=== PATIENT | female | born 1940 | race Caucasian/White ===

== ENCOUNTER → 2016-04-30 | Outpatient (CLI) | payer MEDICARE, OTHER ==
[~2016-04-30] MED LIST: ATAC32TA PO; CARV12.52 PO; DIGO0.12 PO; GLUC500C3 PO; HYDR12.56 PO; LEVO.05 PO
[2016-04-30 10:37] LABS: BICARBONATE 25.1 MEQ/L (21.0-32.0); POTASSIUM 3.9 MEQ/L (3.5-5.1)
== END ==
LOC: PLAB 06:51
PROVIDERS: ATTEND Internal Medicine Interventional Cardiology
DX: I50.22 Chronic systolic (congestive) heart failure (principal); I11.9 Hypertensive heart disease without heart failure; I42.0 Dilated cardiomyopathy
CPT/HCPCS: 36415; 80048

== ENCOUNTER → 2016-06-10 | Outpatient (CLI) | payer MEDICARE, OTHER ==
[2016-06-10 09:28] LABS: AUTOMATED NEUTROPHIL # 3.6 TH/MM3 (1.8-7.7); BASOPHIL # 0.1 TH/MM3 (0-0.2); BASOPHIL % 0.8 % (0.0-2.0); EOSINOPHIL # 0.2 TH/MM3 (0-0.4); EOSINOPHIL % 2.2 % (0.0-4.0); HEMATOCRIT 37.3 % (35.0-46.0); HEMO FLAGS DIFF FINAL; LYMPH % 29.7 % (9.0-44.0); LYMPHOCYTE # 2.2 TH/MM3 (1.0-4.8); MEAN CELL VOLUME 88.4 FL (80.0-100.0); MEAN CORPUSCULAR HEMOGLOBIN 29.6 PG (27.0-34.0); MEAN CORPUSCULAR HGB CONC 33.4 % (32.0-36.0); MONO % 18.6 % (0.0-8.0); NEUT % 48.7 % (16.0-70.0); PLATELET COUNT 285 TH/MM3 (150-450); RED BLOOD COUNT 4.22 MIL/MM3 (4.00-5.30); RED CELL DISTRIBUTION WIDTH 13.6 % (11.6-17.2); WHITE BLOOD COUNT 7.4 TH/MM3 (4.0-11.0)
[2016-06-10 10:03] LABS: DIGOXIN 0.8 NG/ML (0.8-2.0); HDL CHOLESTEROL 45.7 MG/DL (40.0-60.0)
== END ==
LOC: PLAB 06:59
PROVIDERS: ATTEND Family Medicine
DX: E03.8 Other specified hypothyroidism (principal); I43 Cardiomyopathy in diseases classified elsewhere; D64.9 Anemia, unspecified; E78.2 Mixed hyperlipidemia
CPT/HCPCS: 36415; 80061; 80162; 84443; 85025

== ENCOUNTER → 2016-10-28 | Outpatient (CLI) | payer MEDICARE, OTHER ==
[2016-10-28 08:55] LABS: POTASSIUM 4.2 MEQ/L (3.5-5.1)
[2016-10-28 08:58] LABS: BICARBONATE 27.9 MEQ/L (21.0-32.0)
== END ==
LOC: PLAB 07:08
PROVIDERS: ATTEND Internal Medicine Interventional Cardiology
DX: I11.0 Hypertensive heart disease with heart failure (principal); I34.0 Nonrheumatic mitral (valve) insufficiency; I50.22 Chronic systolic (congestive) heart failure
CPT/HCPCS: 36415; 80048

== ENCOUNTER → 2017-05-12 | Outpatient (CLI) | payer MEDICARE, OTHER ==
[2017-05-12 10:03] LABS: BICARBONATE 28.9 MEQ/L (21.0-32.0); CALCIUM 9.2 MG/DL (8.5-10.1); CREATININE 0.95 MG/DL (0.50-1.00)
== END ==
LOC: PLAB 06:41
PROVIDERS: ATTEND Internal Medicine Interventional Cardiology
DX: I50.22 Chronic systolic (congestive) heart failure (principal); Z79.899 Other long term (current) drug therapy
CPT/HCPCS: 36415; 80048

== ENCOUNTER 2017-06-18 02:16 | Observation (INO) | payer MEDICARE, OTHER ==
[2017-06-18] VITALS (8 sets, daily range): BP systolic 93–147; BP diastolic 50–86; PULSE 68–79; RESP 16–20; TEMP 96.3–98.5; O2SAT 90–99
[~2017-06-18] VITALS: Ht 165.1 cm; Wt 64.0 kg
--- NOTE | 2017-06-18 02:25 | PD ---
HPI Chief Complaint: gen weakness Time Seen by Provider: 02:18 Travel History International Travel<30 days: No Contact w/Intl Traveler<30days: No Traveled to known affect area: No History of Present Illness HPI Patient has had about 3-4 day history of generalized weakness, she is also noted that she has a dry cough, and just does not feel herself as per energy baker. She voiced this to her division service manager who in turn recommended her to go and have some blood work done including a TSH and digoxin. Patient denies having any fever, rash, nausea, vomiting, diarrhea, back pain, abdominal pain, or chest pain. PCP is Dr. German [facility] Dr. Rich Patient states she has allergies to iodine/contrast IV dye Past medical history significant for hypothyroidism, valvular disease, hypertension, congestive heart failure. Although the patient denied that she had any history of COPD or congestive heart failure when asked directly. PFSH Past Medical History Cardiovascular Problems: Yes (VALVULAR DX) Congestive Heart Failure: Yes Hypertension: Yes Thyroid Disease: Yes Menopausal: Yes Social History Alcohol Use: Yes (A LITTLE WINE ON OCC) Tobacco Use: No Substance Use: No Allergies-Medications (Allergen,Severity, Reaction): Coded Allergies: Iodinated Contrast- Oral and IV Dye (Unverified Allergy, Severe, THROAT SWELL, 11/18/16) Reported Meds & Prescriptions Reported Meds & Active Scripts Active Reported Glucosamine (Glucosamine Sulfate) 500 Mg Cap 1,500 Mg PO DAILY Hctz (Hydrochlorothiazide) 12.5 Mg Cap 12.5 Mg PO DAILY Synthroid (Levothyroxine Sodium) 50 Mcg Tab 50 Mcg PO DAILY Atacand (Candesartan Cilexetil) 32 Mg Tab 32 Mg PO DAILY Carvedilol 12.5 Mg Tab 12.5 Mg PO BID Digoxin 0.125 Mg Tab 0.125 Mg PO DAILY Review of Systems General / Constitutional: No: Fever Eyes: No: Visual changes HENT: No: Headaches Cardiovascular: No: Chest Pain or Discomfort Respiratory: Positive: Cough, Shortness of Breath Gastrointestinal: No: Abdominal Pain Genitourinary: No: Dysuria Musculoskeletal: No: Pain Skin: No Rash Neurologic: Positive: Weakness (Generalized) Psychiatric: No: Depression Endocrine: No: Polydipsia Hematologic/Lymphatic: No: Easy Bruising Physical Exam Narrative GENERAL: [-] SKIN: Focused skin assessment warm/dry. HEAD: Atraumatic. Normocephalic. EYES: Pupils equal and round. No scleral icterus. No injection or drainage. ENT: No nasal bleeding or discharge. Mucous membranes pink and moist. NECK: Trachea midline. No JVD. CARDIOVASCULAR: Regular rate and rhythm. No murmur appreciated. RESPIRATORY: No accessory muscle use. Right sided wheezing and localized rhonchi along the entire right lung base. Decreased tidal volume of right lung , left lung clear to auscultation with good tidal volume of left lung as well. GASTROINTESTINAL: Abdomen soft, non-tender, nondistended. MUSCULOSKELETAL: No obvious deformities. No clubbing. No cyanosis. No edema. NEUROLOGICAL: Awake and alert. No obvious cranial nerve deficits. Motor grossly within normal limits. Normal speech. PSYCHIATRIC: Appropriate mood and affect; insight and judgment normal. Data Data Last Documented VS Vital Signs Date Time Temp Pulse Resp B/P (MAP) Pulse Ox O2 Delivery O2 Flow Rate FiO2 06/18/17 04:00 78 16 147/86 (106) 97 Room Air 06/18/17 02:20 97.4 Orders Orders Electrocardiogram (06/18/17 02:18) Complete Blood Count With Diff (06/18/17 02:18) Comprehensive Metabolic Panel (06/18/17 02:18) Troponin I (06/18/17 02:18) B-Type Natriuretic Peptide (06/18/17 02:18) Prothrombin Time / Inr (Pt) (06/18/17 02:18) Act Partial Throm Time (Ptt) (06/18/17 02:18) Lipase (06/18/17 02:18) Urinalysis - C+S If Indicated (06/18/17 02:18) Digoxin (06/18/17 02:18) Thyroid Stimulating Hormone (06/18/17 02:18) Sputum Culture And Gram Stain (06/18/17 02:18) Influenzae A/B Antigen (06/18/17 02:18) Chest, Pa & Lat (06/18/17 02:18) Iv Access Insert/Monitor (06/18/17 02:18) Ecg Monitoring (06/18/17 02:18) Oximetry (06/18/17 02:18) Lactic Acid Sepsis Protocol (06/18/17 02:18) Blood Culture (06/18/17 02:18) Ceftriaxone Inj (Rocephin Inj) (06/18/17 02:30) Azithromycin Inj (Zithromax Inj) (06/18/17 02:30) Ondansetron Inj (Zofran Inj) (06/18/17 04:45) Furosemide Inj (Lasix Inj) (06/18/17 04:45) Admit Order (Ed Use Only) (06/18/17 04:46) Labs Laboratory Tests Test 06/18/17 02:30 White Blood Count 11.1 TH/MM3 Red Blood Count 4.14 MIL/MM3 Hemoglobin 12.6 GM/DL Hematocrit 36.5 % Mean Corpuscular Volume 88.4 FL Mean Corpuscular Hemoglobin 30.6 PG Mean Corpuscular Hemoglobin Concent 34.6 % Red Cell Distribution Width 14.0 % Platelet Count 242 TH/MM3 Mean Platelet Volume 10.1 FL Neutrophils (%) (Auto) 67.1 % Lymphocytes (%) (Auto) 17.0 % Monocytes (%) (Auto) 10.9 % Eosinophils (%) (Auto) 2.1 % Basophils (%) (Auto) 2.9 % Neutrophils # (Auto) 7.5 TH/MM3 Lymphocytes # (Auto) 1.9 TH/MM3 Monocytes # (Auto) 1.2 TH/MM3 Eosinophils # (Auto) 0.2 TH/MM3 Basophils # (Auto) 0.3 TH/MM3 CBC Comment AUTO DIFF Differential Total Cells Counted 100 Neutrophils % (Manual) 60 % Band Neutrophils % 1 % Lymphocytes % 30 % Monocytes % 4 % Eosinophils % 5 % Neutrophils # (Manual) 6.8 TH/MM3 Differential Comment FINAL DIFF MANUAL Platelet Estimate NORMAL Platelet Morphology Comment CLUMPED Prothrombin Time 11.4 SEC Prothromb Time International Ratio 1.1 RATIO Activated Partial Thromboplast Time 18.2 SEC Blood Urea Nitrogen 21 MG/DL Creatinine 0.91 MG/DL Random Glucose 151 MG/DL Total Protein 7.0 GM/DL Albumin 3.1 GM/DL Calcium Level 8.1 MG/DL Alkaline Phosphatase 71 U/L Aspartate Amino Transf (AST/SGOT) 48 U/L Alanine Aminotransferase (ALT/SGPT) 70 U/L Total Bilirubin 0.8 MG/DL Sodium Level 141 MEQ/L Potassium Level 4.4 MEQ/L Chloride Level 111 MEQ/L Carbon Dioxide Level 23.2 MEQ/L Anion Gap 7 MEQ/L Estimat Glomerular Filtration Rate 60 ML/MIN Lactic Acid Level 1.3 mmol/L Troponin I LESS THAN 0.02 NG/ML B-Type Natriuretic Peptide 1276 PG/ML Lipase 205 U/L Thyroid Stimulating Hormone 3rd Gen 1.350 uIU/ML Digoxin Level 0.5 NG/ML MDM Medical Decision Making Medical Screen Exam Complete: Yes Emergency Medical Condition: Yes Medical Record Reviewed: Yes Interpretation(s) EKG shows normal sinus rhythm at 67 bpm, with occasional PVCs, along with a left bundle branch block type pattern Differential Diagnosis Anemia versus hypothyroidism versus digoxin overdose versus pneumonia Narrative Course CBC does not show any major leukocytosis or left shift, no anemia, normal platelet count Coagulation profile is normal Digoxin is 0.5 which is actually low Chemistry profile shows a normal kidney functions, normal electrolytes, mildly elevated AST of 48 ALT of 70, the patient's beta natruretic peptide is 1276, troponin is less than 0.02, normal TSH and normal lipase Chest x-ray shows cardiomegaly along with pulmonary edema as read by me Diagnosis Primary Impression: Acute exacerbation of congestive heart failure Admitting Information Admitting Physician Requests: Observation Nicko Mac MD Jun 18, 2017 02:25
[2017-06-18] MEDS ORDERED: AZITHROMYCIN INJ 500 MG in SODIUM CHLOR 0.9% 250 ML INJ 250 ML IV ONE (02:30)
[2017-06-18] MEDS ORDERED: cefTRIAXone INJ 1,000 MG in SODIUM CHLORIDE 0.9% INJ 100 ML IV ONE (02:30)
[2017-06-18 02:47] LABS: CHLORIDE 111 MEQ/L (98-107); SODIUM (NA) 141 MEQ/L (136-145)
[2017-06-18 02:51] LABS: ALBUMIN 3.1 GM/DL (3.4-5.0); BICARBONATE 23.2 MEQ/L (21.0-32.0); CALCIUM 8.1 MG/DL (8.5-10.1)
[2017-06-18 02:52] LABS: BLOOD UREA NITROGEN 21 MG/DL (7-18); GLUCOSE,RANDOM 151 MG/DL (74-106)
[2017-06-18 02:54] LABS: ALT (GPT) 70 U/L (10-53); AST (GOT) 48 U/L (15-37)
[2017-06-18 02:55] LABS: CREATININE 0.91 MG/DL (0.50-1.00); GLOMERULAR FILTRATION RATE 60 ML/MIN (>89)
[2017-06-18 02:56] LABS: AUTOMATED NEUTROPHIL # 7.5 TH/MM3 (1.8-7.7); BASOPHIL # 0.3 TH/MM3 (0-0.2); BASOPHIL % 2.9 % (0.0-2.0); EOSINOPHIL # 0.2 TH/MM3 (0-0.4); EOSINOPHIL % 2.1 % (0.0-4.0); HEMATOCRIT 36.5 % (35.0-46.0); HEMOGLOBIN 12.6 GM/DL (11.6-15.3); LYMPHOCYTE # 1.9 TH/MM3 (1.0-4.8); MEAN CELL VOLUME 88.4 FL (80.0-100.0); MEAN CORPUSCULAR HEMOGLOBIN 30.6 PG (27.0-34.0); MEAN CORPUSCULAR HGB CONC 34.6 % (32.0-36.0); MEAN PLATELET VOLUME 10.1 FL (7.0-11.0); MONO % 10.9 % (0.0-8.0); MONOCYTE # 1.2 TH/MM3 (0-0.9); NEUT % 67.1 % (16.0-70.0); PLATELET COUNT 242 TH/MM3 (150-450); RED BLOOD COUNT 4.14 MIL/MM3 (4.00-5.30); TOTAL BILIRUBIN ADULT 0.8 MG/DL (0.2-1.0); WHITE BLOOD COUNT 11.1 TH/MM3 (4.0-11.0)
[2017-06-18 02:57] LABS: ALKALINE PHOSPHATASE 71 U/L (45-117)
[2017-06-18 03:00] LABS: TROPONIN I LESS THAN 0.02 NG/ML (0.02-0.05)
[2017-06-18 03:06] LABS: INTERNATIONAL NORMALIZED RATIO 1.1 RATIO; PROTHROMBIN TIME - PATIENT 11.4 SEC (9.8-11.6)
[2017-06-18 03:09] LABS: DIGOXIN 0.5 NG/ML (0.8-2.0)
--- NOTE | 2017-06-18 03:14 | RADRPT ---
EXAM DATE/TIME: 06/18/2017 02:43 [place] COMPARISON: No previous studies available for comparison. INDICATIONS : Cough, weakness for 1 week MEDICAL HISTORY : None. SURGICAL HISTORY : None. ENCOUNTER: Initial ACUITY: 1 week PAIN SCORE: 0/10 LOCATION: Bilateral chest FINDINGS: PA and obvious the chest show moderate cardiomegaly. No pulmonary vascular engorgement. Chronic inter stitial changes. The lungs are hyper aerated. No infiltrates or effusions. Bony structures are intact . PA and lateral views of the chest demonstrate the lungs to be symmetrically aerated without evidence of mass, infiltrate or effusion. The cardiomediastinal contours are unremarkable. Osseous structure s are intact. CONCLUSION: Cardiomegaly with chronic interstitial changes. Andrea Martinez Jr., MD on June 18, 2017 at 3:11 Board Certified Radiologist. This report was verified electronically.
[2017-06-18 03:19] LABS: BANDS 1 % (0-6); LYMPHOCYTES 30 % (9-44); MONOCYTES 4 % (0-8); NEUTROPHIL # MANUAL DIFF 6.8 TH/MM3 (1.8-7.7); POLYS (SEG NEUTROPHILS) 60 % (16-70)
[2017-06-18] MEDS ORDERED: ONDANSETRON HCL 4 MG/2 ML VIAL IVP ONE (04:45)
[2017-06-18] MEDS ORDERED: FUROSEMIDE 40 MG/4 ML VIAL IV PUSH ONE (04:45)
[2017-06-18] MEDS ORDERED: NALOXONE HCL 0.4 MG/ML AMP IV PUSH PRN (05:00)
[2017-06-18] MEDS ORDERED: SODIUM CHLORIDE 0.9% FLUSH 10 ML FLUSH IV FLUSH PRN (05:00)
[2017-06-18 06:47] LABS: BILIRUBIN, URINE NEG (NEG); BLOOD, URINE NEG (NEG); GLUCOSE,URINE NEG (NEG); KETONE, URINE NEG (NEG); NITRITE,URINE NEG (NEG); URINE COLOR YELLOW (YELLW/STRAW); URINE LEUKOCYTE ESTERASE NEG (NEG)
[2017-06-18 06:52] LABS: SQUAMOUS EPITHELIAL CELL URINE 0-5 /hpf (0-5)
[2017-06-18] MEDS: SODIUM CHLORIDE 0.9% FLUSH 10 ML FLUSH IV FLUSH SCH ×2 (10:37→20:26)
[2017-06-18] MEDS ORDERED: CARVEDILOL 12.5 MG TAB PO ONE (11:00)
[2017-06-18] MEDS ORDERED: LEVOTHYROXINE SODIUM 50 MCG TAB PO ONE (11:00)
[2017-06-18] MEDS ORDERED: FUROSEMIDE 20 MG/2 ML VIAL IV PUSH ONE (11:00)
[2017-06-18] MEDS ORDERED: DIGOXIN 0.125 MG TAB PO ONE (11:00)
[2017-06-18] MEDS ORDERED: HYDROCHLOROTHIAZIDE 12.5 MG CAP PO ONE (11:00)
--- NOTE | 2017-06-18 12:16 | HHI.HP ---
[facility]ician Yue German MD Admission Diagnosis CHF EXACERBATION Diagnoses: (1) Acute exacerbation of CHF (congestive heart failure) Diagnosis: Principal Travel History International Travel<30 Days: No Contact w/Intl Traveler <30 Da: No Traveled to Known Affected Are: No History of Present Illness Mrs. Little is a 76 year old female. She came in overnight due to shortness of breath and weakness. She is found to have an elevated BNP. She has a past history of congestive heart failure. At baseline she is on hydrochlorothiazide and is usually fluid balanced. With diuresis she has shown improvement already. Continue diuresis should balance her hemodynamically and she may be ready for discharge tomorrow. No complaints of chest pain. Shortness of breath has resolved. Review of Systems Constitutional: COMPLAINS OF: Fatigue, DENIES: Fever, Chills Eyes: DENIES: Diplopia, Eye inflammation, Eye pain Ears, nose, mouth, throat: DENIES: Hearing loss, Vertigo, Nasal discharge, Oral lesions Respiratory: COMPLAINS OF: Shortness of breath, DENIES: Cough, Wheezing Cardiovascular: DENIES: Chest pain, Palpitations, Syncope Gastrointestinal: DENIES: Abdominal pain, Black stools, Bloody stools, Constipation Musculoskeletal: DENIES: Joint pain, Muscle aches, Stiffness, Joint Swelling Integumentary: DENIES: Abnormal pigmentation, Pruritus, Rash, Nail changes, Breast masses, Breast skin changes, Nipple discharge Hematologic/lymphatic: DENIES: Bruising, Lymphadenopathy Immunologic/allergic: DENIES: Eczema, Urticaria Neurologic: DENIES: Abnormal gait, Headache, Paresthesias Psychiatric: DENIES: Anxiety, Confusion, Hallucinations Past Family Social History Past Medical History Congestive heart failure Hypothyroidism Hypertension Cardiac valve disease Past Surgical History None Reported Medications Reported Meds & Active Scripts Active Reported Glucosamine (Glucosamine Sulfate) 500 Mg Cap 1,500 Mg PO DAILY Hydrochlorothiazide (Miscellaneous Medication) 12.5 Mg Cap 12.5 Mg PO DAILY Synthroid (Levothyroxine Sodium) 50 Mcg Tab 50 Mcg PO DAILY Atacand (Candesartan Cilexetil) 32 Mg Tab 32 Mg PO DAILY Carvedilol 12.5 mg (Carvedilol) 12.5 Mg Tab 12.5 Mg PO BID Digoxin 0.125 mg (Digoxin) 0.125 Mg Tab 0.125 Mg PO DAILY Allergies: Coded Allergies: Iodinated Contrast- Oral and IV Dye (Unverified Allergy, Severe, THROAT SWELL, 11/18/16) Active Ordered Medications Administered Medications Medications (Trade) Dose Ordered Sig/Brittani Route PRN Reason Start Time Stop Time Status Last Admin Dose Admin Sodium Chloride (NS Flush) 2 ml BID IV FLUSH 06/18/17 09:00 06/18/17 10:37 Family History Myocardial infarction in mother and 2 sisters Social History Occasional wine No smoking No illicit drug abuse Physical Exam Vital Signs Vital Signs Date Time Temp Pulse Resp B/P (MAP) Pulse Ox O2 Delivery O2 Flow Rate FiO2 06/18/17 07:50 96.8 76 20 109/52 (71) 91 06/18/17 06:00 96.3 78 20 121/60 (80) 96 06/18/17 04:53 68 16 127/77 (94) 98 Room Air 06/18/17 04:00 78 16 147/86 (106) 97 Room Air 06/18/17 02:30 99 Room Air 06/18/17 02:20 97.4 77 18 140/82 (101) 99 Physical Exam GENERAL: NAD, A&Ox3 HEAD: Normocephalic. NECK: Supple, trachea midline. No lymphadenopathy. EYES: No scleral icterus. No injection or drainage. CARDIOVASCULAR: Regular rate and rhythm without murmurs, gallops, or rubs. RESPIRATORY: Breath sounds equal bilaterally. No accessory muscle use. GASTROINTESTINAL: Abdomen soft, non-tender, nondistended. MUSCULOSKELETAL: No cyanosis, or edema. SKIN: Warm and dry. NEURO: No focal neurological deficitis. Laboratory Laboratory Tests Test 06/18/17 02:30 06/18/17 06:40 06/18/17 09:05 White Blood Count 11.1 Red Blood Count 4.14 Hemoglobin 12.6 Hematocrit 36.5 Mean Corpuscular Volume 88.4 Mean Corpuscular Hemoglobin 30.6 Mean Corpuscular Hemoglobin Concent 34.6 Red Cell Distribution Width 14.0 Platelet Count 242 Mean Platelet Volume 10.1 Neutrophils (%) (Auto) 67.1 Lymphocytes (%) (Auto) 17.0 Monocytes (%) (Auto) 10.9 Eosinophils (%) (Auto) 2.1 Basophils (%) (Auto) 2.9 Neutrophils # (Auto) 7.5 Lymphocytes # (Auto) 1.9 Monocytes # (Auto) 1.2 Eosinophils # (Auto) 0.2 Basophils # (Auto) 0.3 CBC Comment AUTO DIFF Differential Total Cells Counted 100 Neutrophils % (Manual) 60 Band Neutrophils % 1 Lymphocytes % 30 Monocytes % 4 Eosinophils % 5 Neutrophils # (Manual) 6.8 Differential Comment FINAL DIFF MANUAL Platelet Estimate NORMAL Platelet Morphology Comment CLUMPED Prothrombin Time 11.4 Prothromb Time International Ratio 1.1 Activated Partial Thromboplast Time 18.2 Blood Urea Nitrogen 21 Creatinine 0.91 Random Glucose 151 Total Protein 7.0 Albumin 3.1 Calcium Level 8.1 Alkaline Phosphatase 71 Aspartate Amino Transf (AST/SGOT) 48 Alanine Aminotransferase (ALT/SGPT) 70 Total Bilirubin 0.8 Sodium Level 141 Potassium Level 4.4 Chloride Level 111 Carbon Dioxide Level 23.2 Anion Gap 7 Estimat Glomerular Filtration Rate 60 Lactic Acid Level 1.3 Troponin I LESS THAN 0.02 LESS THAN 0.02 B-Type Natriuretic Peptide 1276 Lipase 205 Thyroid Stimulating Hormone 3rd Gen 1.350 Digoxin Level 0.5 Urine Collection Type CLEAN CATCH Urine Color YELLOW Urine Turbidity CLEAR Urine pH 5.0 Urine Specific [place] 1.010 Urine Protein NEG Urine Glucose (UA) NEG Urine Ketones NEG Urine Occult Blood NEG Urine Nitrite NEG Urine Bilirubin NEG Urine Urobilinogen 0.2 Urine Leukocyte Esterase NEG Urine Squamous Epithelial Cells 0-5 Microscopic Urinalysis Comment CULT NOT INDICATED Date/Time Source Procedure Growth Status 06/18/17 02:35 Blood Peripheral Aerobic Blood Culture Pending Received 06/18/17 02:35 Blood Peripheral Anaerobic Blood Culture Pending Received 06/18/17 03:10 Nasal Washing Influenza Types A,B Antigen (KEVIN) - Final NEGATIVE FOR FLU A AND B ANTIGEN.... Complete Result Diagram: 06/18/1722906/18/17229 Imaging Last Impressions Chest X-Ray 06/18/17217 Signed Impressions: Service Date/Time: June 02:43 - CONCLUSION: Cardiomegaly with chronic interstitial changes. MD Amaury Menard Jr. VTE Risk Assessment Amaury VTE Risk Assessment: No/Low Risk (score <= 1) Caprini Risk Assessment Model Point Value = 1 Point Value = 2 Point Value = 3 Point Value = 5 Age 41-60 Minor surgery BMI > 25 kg/m2 Swollen legs Varicose veins or History of unexplained or recurrent spontaneous Oral contraceptives or hormone replacement Sepsis (< 1 month) Serious lung disease, including pneumonia (< 1 month) Abnormal pulmonary function Acute myocardial infarction Congestive heart failure (< 1 month) History of inflammatory bowel disease Medical patient at bed rest Age 61-74 Arthroscopic surgery Major open surgery (> 45 min) Laparoscopic surgery (> 45 min) Malignancy Confined to bed (> 72 hours) Immobilizing plaster cast Central venous access Age >= 75 History of VTE Family history of VTE Factor V Leiden Prothrombin [id number] Lupus anticoagulant Anticardiolipin antibodies Elevated serum homocysteine Heparin-induced thrombocytopenia Other congenital or acquired thrombophilia Stroke (< 1 month) Elective arthroplasty Hip, pelvis, or leg fracture Acute spinal cord injury (< 1 month) Prophylaxis Regimen Total Risk Factor Score Risk Level Prophylaxis Regimen 0-1 Low Early ambulation 2 Moderate Order ONE of the following: *Sequential Compression Device (SCD) *Heparin 5000 units SQ BID 3-4 Higher Order ONE of the following medications: *Heparin 5000 units SQ TID *Enoxaparin/Lovenox 40 mg SQ daily (WT < 150 kg, CrCl > 30 mL/min) *Enoxaparin/Lovenox 30 mg SQ daily (WT < 150 kg, CrCl > 10-29 mL/min) *Enoxaparin/Lovenox 30 mg SQ BID (WT < 150 kg, CrCl > 30 mL/min) AND/OR *Sequential Compression Device (SCD) 5 or more Highest Order ONE of the following medications: *Heparin 5000 units SQ TID (Preferred with Epidurals) *Enoxaparin/Lovenox 40 mg SQ daily (WT < 150 kg, CrCl > 30 mL/min) *Enoxaparin/Lovenox 30 mg SQ daily (WT < 150 kg, CrCl > 10-29 mL/min) *Enoxaparin/Lovenox 30 mg SQ BID (WT < 150 kg, CrCl > 30 mL/min) AND *Sequential Compression Device (SCD) Assessment and Plan Problem List: (1) Acute exacerbation of CHF (congestive heart failure) ICD Code: I50.9 - Heart failure, unspecified Assessment and Plan 76-year-old female admitted secondary to CHF exacerbation Acute on chronic CHF, exacerbation Congestive heart failure not otherwise specified Cardiac Valve Disease NOS No records of type of CHF Improvement with diuresis so far Continue diuresis and follow clinically Follow renal function Hypertension Continue baseline treatment Follow blood pressures Adjust treatments as needed Hypothyroidism Continue baseline treatments Follow as an outpatient DVT prophylaxis Everett Hewitt MD Jun 18, 2017 12:16
--- NOTE | 2017-06-18 13:54 | EKG ---
Date Performed: 06/18/2017 Time Performed: 02:39:08 PTAGE: 76 years EKG: Sinus rhythm WITH OCCASIONAL VENTRICULAR PREMATURE COMPLEXES MARKED LEFT AXIS DEVIATION LEFT BUNDLE BRANCH BLOCK ABNORMAL ECG NO PREVIOUS TRACING DOCTOR: Kary Delgado Interpretating Date/Time 06/18/2017 13:51:26
--- NOTE | 2017-06-18 14:05 | EKG ---
Date Performed: 06/18/2017 Time Performed: 09:09:08 PTAGE: 76 years EKG: Sinus rhythm WITH FREQUENT VENTRICULAR PREMATURE COMPLEXES MARKED LEFT AXIS DEVIATION LEFT BUNDLE BRANCH BLOCK AB NORMAL ECG Since the PREVIOUS TRACING , no significant change noted PREVIOUS TRACIN06/18/2017 02.39 DOCTOR: Kary Delgado Interpretating Date/Time 06/18/2017 13:56:51
[2017-06-18] MEDS: FUROSEMIDE 20 MG/2 ML VIAL IV PUSH SCH (15:54)
--- NOTE | 2017-06-18 17:15 | ECHRPT ---
Indication: HEART FAILURE CONCLUSIONS Moderately dilated left ventricle. Wall thickness is normal. The left ventricular systolic function is severely reduced with an estimated ejection fraction in th e range of 15- 20%. Moderate mitral valve regurgitation. Mitral annular calcification is present. Trivial pulmonary valve regurgitation. BP: / HR: Rhythm: MEASUREMENTS (Male / Female) Normal Values Technical Quality: 2D ECHO LV Diastolic Diameter PLAX 5.8 cm 4.2 - 5.9 / 3.9 - 5.3 cm LV Systolic Diameter PLAX 5.4 cm IVS Diastolic Thickness 1.2 cm 0.6 - 1.0 / 0.6 - 0.9 cm LVPW Diastolic Thickness 0.8 cm 0.6 - 1.0 / 0.6 - 0.9 cm LV Relative Wall Thickness 0.3 LA Systolic Diameter LX 4.0 cm 3.0 - 4.0 / 2.7 - 3.8 cm DOPPLER MR Peak Velocity 521.0 cm/s MR Peak Gradient 108.6 mmHg Mitral E Point Velocity 52.8 cm/s Mitral A Point Velocity 83.4 cm/s Mitral E to A Ratio 0.6 TR Peak Velocity 281.0 cm/s TR Peak Gradient 31.6 mmHg Right Atrial Pressure 5.0 mmHg Pulmonary Artery Systolic Pressu 36.6 mmHg Right Ventricular Systolic Press 36.6 mmHg FINDINGS LEFT VENTRICLE Moderately dilated left ventricle. Wall thickness is normal. The left ventricular systolic function is severely reduced with an estimated ejection fraction in th e range of 15- 20%. RIGHT VENTRICLE Normal right ventricular size and systolic function. LEFT ATRIUM The left atrial size is normal. RIGHT ATRIUM The right atrial size is normal. ATRIAL SEPTUM Normal atrial septal thickness without atrial level shunting by limited color doppler interrogation. AORTA The aortic root and proximal ascending aorta are normal in size on limited imaging. MITRAL VALVE Moderate mitral valve regurgitation. Mitral annular calcification is present. AORTIC VALVE Trileaflet aortic valve. No aortic valve stenosis or regurgitation. TRICUSPID VALVE Structurally normal tricuspid valve. No tricuspid valve stenosis or regurgitation. PULMONARY VALVE Trivial pulmonary valve regurgitation. VESSELS The inferior vena cava is normal in size. PERICARDIUM No pericardial effusion. Rashid Granda MD, FACC (Electronically Signed) Final Date:18 June 2017 17:14
[2017-06-18] MEDS: CARVEDILOL 12.5 MG TAB PO SCH (20:26)
[2017-06-19] VITALS: BP 133/63; PULSE 76; RESP 18; TEMP 97.6; O2SAT 91
[2017-06-19 04:00] VITALS: BP 133/84; PULSE 73; RESP 18; TEMP 97.8; O2SAT 91
[2017-06-19] MEDS ORDERED: LEVOTHYROXINE SODIUM 50 MCG TAB PO SCH (06:00)
[2017-06-19 06:09] LABS: AUTOMATED NEUTROPHIL # 4.9 TH/MM3 (1.8-7.7); BASOPHIL % 0.6 % (0.0-2.0); EOSINOPHIL # 0.2 TH/MM3 (0-0.4); EOSINOPHIL % 2.4 % (0.0-4.0); HEMATOCRIT 39.1 % (35.0-46.0); HEMOGLOBIN 12.8 GM/DL (11.6-15.3); LYMPH % 26.4 % (9.0-44.0); LYMPHOCYTE # 2.2 TH/MM3 (1.0-4.8); MEAN CELL VOLUME 89.6 FL (80.0-100.0); MEAN CORPUSCULAR HEMOGLOBIN 29.3 PG (27.0-34.0); MEAN CORPUSCULAR HGB CONC 32.7 % (32.0-36.0); MEAN PLATELET VOLUME 9.3 FL (7.0-11.0); MONO % 11.7 % (0.0-8.0); NEUT % 58.9 % (16.0-70.0); PLATELET COUNT 287 TH/MM3 (150-450); RED BLOOD COUNT 4.37 MIL/MM3 (4.00-5.30); RED CELL DISTRIBUTION WIDTH 13.1 % (11.6-17.2); WHITE BLOOD COUNT 8.3 TH/MM3 (4.0-11.0)
[2017-06-19 06:34] LABS: ALBUMIN 3.2 GM/DL (3.4-5.0); ALKALINE PHOSPHATASE 66 U/L (45-117); ALT (GPT) 58 U/L (10-53); AST (GOT) 29 U/L (15-37); BICARBONATE 30.2 MEQ/L (21.0-32.0); BLOOD UREA NITROGEN 20 MG/DL (7-18); CALCIUM 8.6 MG/DL (8.5-10.1); CHLORIDE 105 MEQ/L (98-107); CREATININE 0.96 MG/DL (0.50-1.00); GLOMERULAR FILTRATION RATE 56 ML/MIN (>89); GLUCOSE,RANDOM 105 MG/DL (74-106); SODIUM (NA) 141 MEQ/L (136-145); TOTAL BILIRUBIN ADULT 1.2 MG/DL (0.2-1.0)
[2017-06-19 08:00] VITALS: BP 135/76; PULSE 98; RESP 20; TEMP 96.3; O2SAT 98
[2017-06-19] MEDS ORDERED: POTASSIUM CHLORIDE 10 MEQ CONTROLLED RELEASE TAB PO ONE (08:45)
[2017-06-19] MEDS ORDERED: DIGOXIN 0.125 MG TAB PO SCH (09:00)
[2017-06-19] MEDS ORDERED: GLUCOSAMINE SULFATE 1500 MG PO SCH (09:00)
[2017-06-19] MEDS ORDERED: [UNRECOGNIZED DRUG - OTHER] PO SCH (09:00)
[2017-06-19] MEDS ORDERED: LOSARTAN 50 MG TAB PO SCH (09:00)
[2017-06-19] MEDS: CARVEDILOL 12.5 MG TAB PO SCH (09:58)
[2017-06-19] MEDS: FUROSEMIDE 20 MG/2 ML VIAL IV PUSH SCH (10:00)
[2017-06-19] MEDS ORDERED: FURO1TAB62 PO (10:13)
--- NOTE | 2017-06-19 11:21 | EKG ---
Date Performed: 06/18/2017 Time Performed: 14:25:34 PTAGE: 76 years EKG: Sinus rhythm WITH FREQUENT VENTRICULAR PREMATURE COMPLEXES MARKED LEFT AXIS DEVIATION LEFT BUNDLE BRANCH BLOCK AB NORMAL ECG PREVIOUS TRACING : 06/18/2017 09.09 Since the previous tracing, no significant change noted DOCTOR: Chadd Glass Interpretating Date/Time 06/19/2017 11:20:17
[2017-06-19 12:00] VITALS: BP 130/70; PULSE 98; RESP 20; TEMP 96.3; O2SAT 98
--- NOTE | 2017-06-19 18:08 | HHI.DS ---
Discharge Summary Admission Date Jun 18, 2017 at 04:48 Discharge Date: Jun 19, 2017 Admitting Diagnosis CHF EXACERBATION (1) Acute exacerbation of CHF (congestive heart failure) ICD Code: I50.9 - Heart failure, unspecified Diagnosis: Principal Procedures None Brief History - From Admission Mrs. Little is a 76 year old female. She came in overnight due to shortness of breath and weakness. She is found to have an elevated BNP. She has a past history of congestive heart failure. At baseline she is on hydrochlorothiazide and is usually fluid balanced. With diuresis she has shown improvement already. Continue diuresis should balance her hemodynamically and she may be ready for discharge tomorrow. No complaints of chest pain. Shortness of breath has resolved. CBC/BMP: 06/19/17 0530 06/19/17 0530 Significant Findings Laboratory Tests Test 06/18/17 02:30 06/18/17 06:40 06/18/17 09:05 06/18/17 14:20 White Blood Count 11.1 TH/MM3 (4.0-11.0) Monocytes (%) (Auto) 10.9 % (0.0-8.0) Basophils (%) (Auto) 2.9 % (0.0-2.0) Monocytes # (Auto) 1.2 TH/MM3 (0-0.9) Basophils # (Auto) 0.3 TH/MM3 (0-0.2) Eosinophils % 5 % (0-4) Platelet Morphology Comment CLUMPED (NORMAL) Activated Partial Thromboplast Time 18.2 SEC (24.3-30.1) Blood Urea Nitrogen 21 MG/DL (7-18) Random Glucose 151 MG/DL (74-106) Albumin 3.1 GM/DL (3.4-5.0) Calcium Level 8.1 MG/DL (8.5-10.1) Aspartate Amino Transf (AST/SGOT) 48 U/L (15-37) Alanine Aminotransferase (ALT/SGPT) 70 U/L (10-53) Chloride Level 111 MEQ/L (98-107) Estimat Glomerular Filtration Rate 60 ML/MIN (>89) Troponin I LESS THAN 0.02 NG/ML LESS THAN 0.02 NG/ML LESS THAN 0.02 NG/ML B-Type Natriuretic Peptide 1276 PG/ML (0-100) Digoxin Level 0.5 NG/ML (0.8-2.0) Test 06/19/17 05:30 Monocytes (%) (Auto) 11.7 % (0.0-8.0) Monocytes # (Auto) 1.0 TH/MM3 (0-0.9) Blood Urea Nitrogen 20 MG/DL (7-18) Albumin 3.2 GM/DL (3.4-5.0) Alanine Aminotransferase (ALT/SGPT) 58 U/L (10-53) Total Bilirubin 1.2 MG/DL (0.2-1.0) Potassium Level 3.3 MEQ/L (3.5-5.1) Estimat Glomerular Filtration Rate 56 ML/MIN (>89) Hospital Course Mrs. Little is a 76 year old female. She has congestive heart failure at baseline. Ejection fraction is 15-20% based on echocardiogram obtained at this visit which correlates with what she's been out since as far back as 2006 a center records. She follows with cardiology as an outpatient in regards to this. I provided her with diuretics and she has had improvement overnight. She is back to baseline. Medically stable for discharge. Plan is to discharge with an as needed diuretic. Discharge home today. Pt Condition on Discharge: Stable Discharge Disposition: Discharge Home Discharge Time: <= 30 minutes Discharge Instructions DIET: Follow Instructions for: Heart Healthy Diet Activities you can perform: Regular-No Restrictions Follow up Referrals: Cardiology - 2 Weeks PCP Follow-up - 2 Weeks New Medications: Furosemide (Lasix) 20 Mg Tab 20 MG PO DAILY PRN for Fluid Excess, #30 TAB 0 Refills Continued Medications: Candesartan Cilexetil (Atacand) 32 Mg Tab 32 MG PO DAILY, TAB Carvedilol 12.5 mg (Carvedilol 12.5 mg) 12.5 Mg Tab 12.5 MG PO BID, TAB Digoxin 0.125 mg (Digoxin 0.125 mg) 0.125 Mg Tab 0.125 MG PO DAILY, TAB Glucosamine Sulfate (Glucosamine) 500 Mg Cap 1500 MG PO DAILY, CAP Levothyroxine Sodium (Synthroid) 50 Mcg Tab 50 MCG PO DAILY, TAB Miscellaneous (Hydrochlorothiazide) 12.5 Mg Cap 12.5 MG PO DAILY, CAP Everett Toth MD Jun 19, 2017 18:08
== END 2017-06-19 15:49 | disposition home or self-care (01) ==
LOC: PHED 02:16 → PHEDA 04:48 → PH3B 05:57
PROVIDERS: ADMIT Hospitalist; ATTEND Hospitalist
DX: I11.0 Hypertensive heart disease with heart failure (principal); I50.9 Heart failure, unspecified; I44.7 Left bundle-branch block, unspecified; I49.3 Ventricular premature depolarization; R94.31 Abnormal electrocardiogram [ECG] [EKG]; R05 Cough; R06.02 Shortness of breath; R53.1 Weakness; E03.9 Hypothyroidism, unspecified; Z79.899 Other long term (current) drug therapy; Z91.041 Radiographic dye allergy status
CPT/HCPCS: 71046; 80053; 80162; 81001; 83605; 83690; 83880; 84443; 84484; 85007; 85025; 85027; 85610; 85730; 87040; 87804; 93005; 93306; 96365; 96367; 96375; 96376; 97161; 99285; G0378; G8987; G8988; J0456; J0696; J1940; J2405; J7050

== ENCOUNTER → 2017-06-22 | Outpatient (CLI) | payer MEDICARE, OTHER ==
[~2017-06-22] MED LIST changes: +FURO1TAB62 PO
[2017-06-22 10:15] LABS: HEMATOCRIT 41.1 % (35.0-46.0); HEMOGLOBIN 13.7 GM/DL (11.6-15.3); MEAN CELL VOLUME 88.5 FL (80.0-100.0); MEAN CORPUSCULAR HEMOGLOBIN 29.5 PG (27.0-34.0); MEAN CORPUSCULAR HGB CONC 33.4 % (32.0-36.0); MEAN PLATELET VOLUME 9.3 FL (7.0-11.0); PLATELET COUNT 339 TH/MM3 (150-450); RED BLOOD COUNT 4.64 MIL/MM3 (4.00-5.30); RED CELL DISTRIBUTION WIDTH 13.6 % (11.6-17.2); WHITE BLOOD COUNT 7.8 TH/MM3 (4.0-11.0)
[2017-06-22 10:42] LABS: DIGOXIN 0.8 NG/ML (0.8-2.0)
[2017-06-22 16:31] LABS: BICARBONATE 29.9 MEQ/L (21.0-32.0); CREATININE 1.09 MG/DL (0.50-1.00)
== END ==
LOC: PLAB 06:49
PROVIDERS: ATTEND Internal Medicine Interventional Cardiology
DX: I50.22 Chronic systolic (congestive) heart failure (principal); I47.1 Supraventricular tachycardia; I42.0 Dilated cardiomyopathy; R53.83 Other fatigue; Z79.899 Other long term (current) drug therapy; T46.0X5A Adverse effect of cardiac-stimulant glycosides and drugs of similar action, initial encounter
CPT/HCPCS: 36415; 80048; 80162; 84443; 85027

== ENCOUNTER 2017-07-18 07:26 | Emergency (ER) | payer MEDICARE, OTHER ==
[~2017-07-18] VITALS: Ht 165.1 cm; Wt 5.0 kg
[2017-07-18 07:29] VITALS: BP 119/80; PULSE 81; RESP 16; TEMP 97.5; O2SAT 96
[2017-07-18] MEDS ORDERED: DIGO0.12 PO (07:43)
[2017-07-18] MEDS ORDERED: ATAC32TA PO (07:43)
[2017-07-18] MEDS ORDERED: LEVO.05 PO (07:43)
[2017-07-18] MEDS ORDERED: FURO1TAB62 PO (07:43)
[2017-07-18] MEDS ORDERED: GLUC15009 PO (07:43)
[2017-07-18] MEDS ORDERED: CARV12.52 PO (07:43)
[2017-07-18 07:46] VITALS: BP 119/80; PULSE 81; RESP 16; TEMP 97.5; O2SAT 96
--- NOTE | 2017-07-18 07:52 | PD ---
HPI Chief Complaint: General Weakness Time Seen by Provider: 07:39 Travel History International Travel<30 days: No Contact w/Intl Traveler<30days: No Traveled to known affect area: No History of Present Illness HPI The patient was seen and examined in the presence of the nurse. This patient came to the ER this morning because she just does not feel right. She is extremely vague and cannot elaborate further. She just felt like something might be wrong but could not figure out what. She has not had any chest pain or pressure or tightness or heaviness. No presyncopal symptoms. No fever or vomiting or productive cough. Symptom severity is mild to moderate. No alleviating factors. Duration is 1 hour. No exacerbating factors. PFSH Past Medical History Cardiovascular Problems: Yes Congestive Heart Failure: Yes Diabetes: No Diminished Hearing: No Endocrine: Yes Hypertension: Yes Musculoskeletal: Yes Thyroid Disease: Yes Tetanus Vaccination: Unknown ?: Not Menopausal: Yes Past Surgical History Other Surgery: No Social History Alcohol Use: Yes (A LITTLE WINE ON OCC) Tobacco Use: No Substance Use: No Allergies-Medications (Allergen,Severity, Reaction): Coded Allergies: Iodinated Contrast- Oral and IV Dye (Unverified Allergy, Severe, THROAT SWELL, 07/18/17) Reported Meds & Prescriptions Reported Meds & Active Scripts Active Reported Synthroid (Levothyroxine Sodium) 50 Mcg Tab 50 Mcg PO DAILY Glucosamine 1,500 Mg Tab 1,500 Mg PO DAILY Lasix (Furosemide) 20 Mg Tab 20 Mg PO DIRECTED Digoxin 0.125 Mg Tab 0.125 Mg PO DAILY Carvedilol 12.5 Mg Tab 12.5 Mg PO BID Atacand (Candesartan Cilexetil) 32 Mg Tab 32 Mg PO DAILY Review of Systems General / Constitutional: No: Fever Eyes: No: Visual changes HENT: No: Headaches Cardiovascular: No: Chest Pain or Discomfort Respiratory: No: Shortness of Breath Gastrointestinal: No: Abdominal Pain Genitourinary: No: Dysuria Musculoskeletal: No: Pain Skin: No Rash Neurologic: No: Weakness Psychiatric: No: Depression Endocrine: No: Polydipsia Hematologic/Lymphatic: No: Easy Bruising Physical Exam Narrative GENERAL: Well-nourished, well-developed patient in no apparent distress. SKIN: Focused skin assessment reveals no rash and nodules. Skin is Warm and dry. HEAD: Atraumatic. Normocephalic. EYES: Pupils equal and round. No scleral icterus. No injection or drainage. ENT: No nasal bleeding or discharge. Mucous membranes pink and moist. NECK: Trachea midline. No JVD. CARDIOVASCULAR: Regular rate and rhythm. No murmur appreciated. RESPIRATORY: No accessory muscle use. Clear to auscultation. Breath sounds equal bilaterally. GASTROINTESTINAL: Abdomen soft, non-tender, nondistended. Hepatic and splenic margins not palpable. MUSCULOSKELETAL: No obvious deformities. No clubbing. No cyanosis. No edema. NEUROLOGICAL: Awake and alert. No obvious cranial nerve deficits. Motor grossly within normal limits. Normal speech. PSYCHIATRIC: Appropriate mood and affect; insight and judgment normal. Data Data Last Documented VS Vital Signs Date Time Temp Pulse Resp B/P (MAP) Pulse Ox O2 Delivery O2 Flow Rate FiO2 07/18/17 09:33 78 16 124/56 (78) 95 Room Air 07/18/17 07:46 97.5 Orders Orders Chest, Single Ap (07/18/17 ) Electrocardiogram (07/18/17 ) Complete Blood Count With Diff (07/18/17 07:57) Basic Metabolic Panel (Bmp) (07/18/17 07:57) Troponin I (07/18/17 07:57) Ckmb (Isoenzyme) Profile (07/18/17 07:57) Iv Access Insert/Monitor (07/18/17 07:57) Lining Brusher / Telemetry [id number] (07/18/17 07:57) Digoxin (07/18/17 08:10) Furosemide Inj (Lasix Inj) (07/18/17 09:45) Magnesium (Mg) (07/18/17 10:45) Labs Laboratory Tests Test 07/18/17 08:00 White Blood Count 7.1 TH/MM3 Red Blood Count 4.56 MIL/MM3 Hemoglobin 13.3 GM/DL Hematocrit 40.7 % Mean Corpuscular Volume 89.4 FL Mean Corpuscular Hemoglobin 29.3 PG Mean Corpuscular Hemoglobin Concent 32.7 % Red Cell Distribution Width 14.7 % Platelet Count 275 TH/MM3 Mean Platelet Volume 9.2 FL Neutrophils (%) (Auto) 70.0 % Lymphocytes (%) (Auto) 17.0 % Monocytes (%) (Auto) 11.2 % Eosinophils (%) (Auto) 1.2 % Basophils (%) (Auto) 0.6 % Neutrophils # (Auto) 5.0 TH/MM3 Lymphocytes # (Auto) 1.2 TH/MM3 Monocytes # (Auto) 0.8 TH/MM3 Eosinophils # (Auto) 0.1 TH/MM3 Basophils # (Auto) 0.0 TH/MM3 CBC Comment DIFF FINAL Differential Comment Blood Urea Nitrogen 19 MG/DL Creatinine 0.83 MG/DL Random Glucose 118 MG/DL Calcium Level 8.8 MG/DL Sodium Level 141 MEQ/L Potassium Level 4.2 MEQ/L Chloride Level 108 MEQ/L Carbon Dioxide Level 26.7 MEQ/L Anion Gap 6 MEQ/L Estimat Glomerular Filtration Rate 66 ML/MIN Magnesium Level 2.2 MG/DL Total Creatine Kinase 85 U/L Troponin I LESS THAN 0.02 NG/ML Digoxin Level 0.8 NG/ML MDM Medical Decision Making Medical Screen Exam Complete: Yes Emergency Medical Condition: Yes Medical Record Reviewed: Yes Differential Diagnosis Anxiety, malaise, CHF Narrative Course I have reviewed the patient's electronic medical record. Patient was kept overnight in the hospital 1 day last month for CHF On a clinical basis she looks well. Vitals are normal. She does not seem fluid overloaded She is very vague. I reviewed her chest x-ray which may suggest minimal edema. On a clinical basis she is breathing fine. I did give her 1 dose of IV Lasix I reviewed her EKG which shows bigeminy CBC and metabolic profile normal. Magnesium normal Patient feels fine and wants to go home. I reviewed her situation with covering washroom operator Dr. Carrillo We discussed her history. She had a catheterization in showing nonischemic cardiomyopathy. Echocardiogram 1 month ago showed EF of 15-20%. He noted that the patient should have a implantable defibrillator to prevent sudden cardiac and does not have one. I discussed this with the patient. Her washroom operator recommended one but she thought about it and refused placement. I rediscussed the issue with her. She continues to refuse placement. She does not want one now. She does have an appointment with with her washroom operator Dr. Rich in 4 days. She realizes that she is at risk for sudden cardiac and accepts that risk. Mechanic Welder does not recommend any specific treatment for the bigeminy. She can follow-up with her washroom operator. Diagnosis Primary Impression: Malaise Additional Impressions: Bigeminy Nonischemic cardiomyopathy Additional Instructions: The patient was advised to follow up with their physician and return if they worsen. Repeat discussion with your washroom operator about the implanted defibrillator Med/Other Pt SpecificInfo: Other Disposition: 01 DISCHARGE HOME Condition: Stable Alonso Lopez MD Jul 18, 2017 07:52
[2017-07-18 08:23] LABS: BASOPHIL % 0.6 % (0.0-2.0); EOSINOPHIL # 0.1 TH/MM3 (0-0.4); EOSINOPHIL % 1.2 % (0.0-4.0); HEMATOCRIT 40.7 % (35.0-46.0); HEMOGLOBIN 13.3 GM/DL (11.6-15.3); LYMPHOCYTE # 1.2 TH/MM3 (1.0-4.8); MEAN CELL VOLUME 89.4 FL (80.0-100.0); MEAN CORPUSCULAR HEMOGLOBIN 29.3 PG (27.0-34.0); MEAN CORPUSCULAR HGB CONC 32.7 % (32.0-36.0); MEAN PLATELET VOLUME 9.2 FL (7.0-11.0); MONO % 11.2 % (0.0-8.0); MONOCYTE # 0.8 TH/MM3 (0-0.9); PLATELET COUNT 275 TH/MM3 (150-450); RED BLOOD COUNT 4.56 MIL/MM3 (4.00-5.30); RED CELL DISTRIBUTION WIDTH 14.7 % (11.6-17.2); WHITE BLOOD COUNT 7.1 TH/MM3 (4.0-11.0)
--- NOTE | 2017-07-18 08:23 | RADRPT ---
EXAM DATE/TIME: 07/18/2017 07:50 [facility] COMPARISON: No previous studies available for comparison. INDICATIONS : Short of breath MEDICAL HISTORY : None. SURGICAL HISTORY : None. ENCOUNTER: Initial ACUITY: 1 day PAIN SCORE: 0/10 LOCATION: Bilateral chest FINDINGS: Cardiomegaly with mild interstitial edema. No pleural effusions. No consolidation. The portion of t he bony skeleton visualized is unremarkable. CONCLUSION: Mild congestive failure. Jose Whitfield MD FACR on July 18, 2017 at 8:21 Board Certified Radiologist. This report was verified electronically.
[2017-07-18 08:31] LABS: CHLORIDE 108 MEQ/L (98-107); SODIUM (NA) 141 MEQ/L (136-145)
[2017-07-18 08:33] LABS: CALCIUM 8.8 MG/DL (8.5-10.1)
[2017-07-18 08:34] LABS: BICARBONATE 26.7 MEQ/L (21.0-32.0); BLOOD UREA NITROGEN 19 MG/DL (7-18); GLUCOSE,RANDOM 118 MG/DL (74-106)
[2017-07-18 08:37] LABS: CREATININE 0.83 MG/DL (0.50-1.00); GLOMERULAR FILTRATION RATE 66 ML/MIN (>89)
[2017-07-18 08:42] LABS: TROPONIN I LESS THAN 0.02 NG/ML (0.02-0.05)
[2017-07-18 09:33] VITALS: BP 124/56; PULSE 78; RESP 16; O2SAT 95
[2017-07-18] MEDS ORDERED: FUROSEMIDE 40 MG/4 ML VIAL IV PUSH ONE (09:45)
--- NOTE | 2017-07-18 16:58 | EKG ---
Date Performed: 07/18/2017 Time Performed: 07:54:48 PTAGE: 76 years EKG: Sinus rhythm WITH FREQUENT VENTRICULAR PREMATURE COMPLEXES IN A BIGEMINAL PATTERN MARKED LEFT AXIS DEVIATION LEFT BUNDLE BRANCH BLOCK ABNORMAL ECG Compared to PREVIOUS TRACING , patient is now in bigeminal pattern. PREVIOUS TRACIN06/18/2017 14.2 5 DOCTOR: Yolanda Ramos Interpretating Date/Time 07/18/2017 16:56:53
== END 2017-07-18 11:49 | disposition home or self-care (01) ==
LOC: PHED 07:26
DX: R53.1 Weakness (principal); R00.8 Other abnormalities of heart beat; I42.9 Cardiomyopathy, unspecified; R94.31 Abnormal electrocardiogram [ECG] [EKG]; I50.9 Heart failure, unspecified; I11.0 Hypertensive heart disease with heart failure
CPT/HCPCS: 71045; 80048; 80162; 82550; 83735; 84484; 85025; 93005; 96374; 99285; J1940

== ENCOUNTER → 2017-08-06 | Outpatient (CLI) | payer MEDICARE, OTHER ==
[~2017-08-06] MED LIST changes: +GLUC15009 PO; -GLUC500C3 PO; -HYDR12.56 PO
[2017-08-06 10:38] LABS: BICARBONATE 28.2 MEQ/L (21.0-32.0); CALCIUM 8.4 MG/DL (8.5-10.1); CREATININE 0.95 MG/DL (0.50-1.00)
== END ==
LOC: PLAB 06:45
PROVIDERS: ATTEND Internal Medicine Interventional Cardiology
DX: I11.0 Hypertensive heart disease with heart failure (principal); I42.0 Dilated cardiomyopathy; I47.1 Supraventricular tachycardia; I50.22 Chronic systolic (congestive) heart failure; Z79.899 Other long term (current) drug therapy
CPT/HCPCS: 36415; 80048